=== PATIENT | female | born 1965 | race Two or more races ===

== ENCOUNTER 2016-12-12 15:29 | Emergency (ER) | payer OTHER ==
[2016-12-12 15:37] VITALS: RESP 18; O2SAT 96
[2016-12-12] MEDS ORDERED: PROPARACAINE 0.5% 15 ML OPHT DROP OP ONE (17:20)
--- NOTE | 2016-12-12 17:24 | EDPHY ---
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 Yesterday she was using Clorox wipes and got some fumes in her eyes. Ever since that episode she has had bilateral eye irritation. No photophobia. No discharge. No conjunctival injection. No vision changes. No headache. No difficulty breathing or coughing. REVIEW OF SYSTEMS: Constitutional: denies: chills, fever, recent illness, recent injury EENTM: See HPI denies: blurred vision, double vision, nose congestion Respiratory: denies: cough, shortness of breath Cardiac: denies: chest pain, irregular heart rate, lightheadedness, palpitations Gastrointestinal/Abdominal: denies: abdominal pain, diarrhea, nausea, vomiting, blood streaked stools Genitourinary: denies: dysuria, frequency, hematuria, pain Musculoskeletal: denies: joint pain, muscle pain Skin: denies: lesions, rash, jaundice, bruising Neurological: denies: headache, numbness, paresthesia, tingling, dizziness, weakness Hematologic/Lymphatic: denies: blood clots, easy bleeding, easy bruising Immunologic/allergic: denies: HIV/AIDS, transplant EXAM: GENERAL: Well-appearing, well-nourished and in no acute distress. HEAD: Atraumatic, normocephalic. EYES: Pupils equal round and reactive to light, extraocular movements intact, sclera anicteric, conjunctiva are normal. ENT: TMs normal, nares patent, oropharynx clear without exudates. Moist mucous membranes. NECK: Normal range of motion, supple without lymphadenopathy or JVD. LUNGS: Breath sounds clear to auscultation bilaterally and equal. No wheezes rales or rhonchi. HEART: Regular rate and rhythm without murmurs, rubs or gallops. ABDOMEN: Soft, nontender, normoactive bowel sounds. No guarding, no rebound. No masses appreciated. BACK: No CVA tenderness, no spinal tenderness, step-offs or deformities EXTREMITIES: Normal range of motion, no pitting or edema. No clubbing or cyanosis. NEUROLOGICAL: Cranial nerves II through XII grossly intact. Normal speech, normal gait. 5/5 strength, normal movement in all extremities, normal sensation PSYCH: Normal mood, normal affect. SKIN: Warm, dry, normal turgor, no visible rashes or lesions. Source: Patient Exam Limitations: No limitations - Personal History LMP (Females 10-55): Hysterectomy Current Tetanus Diphtheria and Acellular Pertussis (TDAP): Yes Tetanus Vaccine Date: w/in 10yrs - Medical/Surgical History Hx Asthma: No Hx Chronic Respiratory Disease: No Hx Diabetes: No Hx Cardiac Disease: No Hx Renal Disease: No Hx Cirrhosis: No Hx Alcoholism: No Hx HIV/AIDS: No Hx Splenectomy or Spleen Trauma: No Other PMH: Martine, tubal lig, shoulder surg, GERD, UTERINE PROBLEMS, hysterectomy , L OOPHARECTOMY. HTN - Family History Significant Family History: No pertinent family hx - Social History Smoking Status: Never smoked Alcohol Use: Sober Drug Use: None Constitutional: Initial Vital Signs Temperature (C) 36.6 C 12/12/16 15:35 Heart Rate 79 12/12/16 15:35 Respiratory Rate 18 12/12/16 15:35 Blood Pressure 101/64 12/12/16 15:35 O2 Sat (%) 96 12/12/16 15:35 O2 Delivery Mode Room Air Allergies/Adverse Reactions: morphine Allergy (Verified 12/12/16 15:32) Home Medications: Medication Instructions Recorded Omeprazole [Prilosec 20 mg] 20 mg PO BID 09/19/14 Atorvastatin Calcium [Lipitor 10 10 mg PO DAILY #30 tab 09/20/14 mg (*)] Lisinopril 10 mg PO DAILY10 12/15/15 Metoprolol Tartrate [Lopressor 25 100 mg PO DAILY10 12/15/15 mg (*)] Estradiol [Estrace Vaginal (*)] 1 gm VAG BID PRN #1 crtube 05/23/16 Medical Decision Making ED Course/Re-evaluation: Patient has normal vision and eye exam. We will irrigate her eyes. She likely has a slight irritation to her cornea that will heal after the next day or two. I will refer her to Ophthalmology as well. Differential Diagnosis: Partial list of the Differential diagnosis considered include but were not limited to; abrasion, foreign body, iritis, chemical irritation, burn and although unlikely based on the history and physical exam, I also considered glaucoma, retinal detachment, ischemia. I discussed these differential diagnoses and the plan with the patient as well as the usual and expected course. The patient understands that the diagnosis is provisional and that in medicine we are not always correct and that further workup is often warranted. Usual and customary warnings were given. All of the patient's questions were answered. The patient was instructed to return to the emergency department should the symptoms at all worsen or return, otherwise to followup with the physician as we discussed. - Data Points Medications Given: Discontinued Medications Proparacaine HCl (Alcaine 0.5%) 1 drops OP EDNOW ONE Stop: 12/12/16 17:21 Last Admin: 12/12/16 18:27 Dose: 2 drops Departure - Departure Disposition: Home, Routine, Self-Care Clinical Impression: Irritation of both eyes Condition: Fair Instructions: Keratitis (ED) Referrals: Joy Wise MD [Primary Care Provider] - As per Instructions Valdez Valentino MD [Medical Doctor] - As per Instructions Stand Alone Forms: Work Excuse
[2016-12-12 18:54] VITALS: BP 110/79; PULSE 62; TEMP 98.6
== END 2016-12-12 18:54 | disposition home or self-care (01) ==
DX: H57.8 Other specified disorders of eye and adnexa (principal); I10 Essential (primary) hypertension

== ENCOUNTER 2017-05-31 18:32 | Emergency (ER) | payer OTHER ==
--- NOTE | 2017-05-31 19:03 | CPEKG ---
Heart Rate: 88 RR Interval: 682 P-R Interval: 128 QRSD Interval: 80 QT Interval: 368 QTC Interval: 446 P Center: 14 QRS Center: 8 T Wave Center: -22 EKG Severity - BORDERLINE ECG - EKG Impression: SINUS RHYTHM EKG Impression: BORDERLINE T ABNORMALITIES, DIFFUSE LEADS Electronically Signed By: Yeyo Nieves 31-May-2017 19:32:43
--- NOTE | 2017-05-31 19:14 | EDPHY ---
H & P Time Seen by Provider: 05/31/17 19:13 HPI/ROS: Chief complaint. Chest pain HPI. 52-year-old female presents emergency department chest discomfort for 3 weeks. She describes as pressure. Recent diagnosis of bronchitis. Questionable abnormal EKG. Her pain is constant though somewhat worse at times. No radiation of her discomfort. It is not worse with deep breathing or exertion. Occasionally she feels a rapid heart rate and generalized weakness. Slight cough but no fever. No unusual leg pain or swelling. She has had similar symptoms previously ROS Constitutional. no fever/chills, no weakness Eyes. no problems with vision ENT. no sore throat, no nasal drainage Cardiovascular. Chest discomfort Respiratory. no shortness of breath, no cough Abdominal. no abdominal pain, no nausea/vomiting, no diarrhea . no problems urinating MS. no calf pain/swelling, no neck/back pain, no joint pain Skin. no rash Lymph. no swollen glands Neuro. no headache, no dizziness, no difficulty walking or with speech Past Medical/Surgical History: Past medical history significant for cholecystectomy GERD, hysterectomy, hypertension Family history of coronary artery disease Social History: , nonsmoker, no alcohol Smoking Status: Never smoked Physical Exam: General Appearance: Alert well-developed female mild distress vital signs are stable Eyes: Pupils equal and round no pallor or injection. ENT, Mouth: Mucous membranes are moist. Respiratory: There are no retractions, lungs are clear to auscultation. Cardiovascular: Regular rate and rhythm. Gastrointestinal: Abdomen is soft and nontender, no masses, bowel sounds normal. Neurological: Awake and alert, sensory and motor exams grossly normal. Skin: Warm and dry, no rashes. Musculoskeletal: Neck is supple nontender. Extremities symmetrical, full range of motion. Psychiatric: Patient is oriented X 3, there is no agitation. Constitutional: Initial Vital Signs Temperature (C) 36.9 C 05/31/17 18:42 Heart Rate 90 05/31/17 18:42 Respiratory Rate 16 05/31/17 18:42 Blood Pressure 111/82 H 05/31/17 18:42 O2 Sat (%) 95 05/31/17 18:42 O2 Delivery Mode Room Air Allergies/Adverse Reactions: amoxicillin Allergy (Verified 05/31/17 18:40) morphine Allergy (Verified 12/12/16 15:32) Home Medications: Medication Instructions Recorded Omeprazole [Prilosec 20 mg] 20 mg PO BID 09/19/14 Atorvastatin Calcium [Lipitor 10 10 mg PO DAILY #30 tab 09/20/14 mg (*)] Lisinopril 10 mg PO DAILY10 12/15/15 Metoprolol Tartrate [Lopressor 25 100 mg PO DAILY10 12/15/15 mg (*)] Estradiol [Estrace Vaginal (*)] 1 gm VAG BID PRN #1 crtube 05/23/16 Azithromycin 05/31/17 Medical Decision Making - Diagnostics EKG Interpretation: EKG interpreted by me shows normal sinus rhythm with normal interval. There is left axis deviation. QRS is normal there is no significant ST elevation or depression. There is diffuse T-wave flattening especially anterior leads No significant change from previous EKG September 2014 Imaging Results: Imaging Impressions Chest X-Ray 05/31/17 19:08 Impression: No acute thoracic abnormality. Chest/Thorax CTA 05/31/17 20:48 Impression: No pulmonary embolism to the segmental level. Dr. Vides discussed these findings by telephone with KENDRA PINON on 2016 at 22:11 hours. Chest x-ray interpreted by me as no pneumonia Procedures: IV normal saline, monitor. Aspirin in the emergency department ED Course/Re-evaluation: Re-evaluation at 8:45 p.m.. Patient is stable. Patient and I discussed imaging and lab results. We discussed elevated D-dimer and recommendation for chest CT. She expresses understanding and agreement upward bound director is Jayson Differential Diagnosis: I have considered acute coronary syndrome, pneumonia, pulmonary embolus. - Data Points Laboratory Results: Laboratory Results 05/31/17 18:52 05/31/17 18:52 05/31/17 05/31/17 05/31/17 18:52 18:52 18:52 WBC 8.61 10^3/uL 10^3/uL (3.80-9.50) RBC 4.78 10^6/uL 10^6/uL (4.18-5.33) Hgb 14.5 g/dL g/dL (12.6-16.3) Hct 41.0 % % (38.0-47.0) MCV 85.8 fL fL (81.5-99.8) MCH 30.3 pg pg (27.9-34.1) MCHC 35.4 g/dL g/dL (32.4-36.7) RDW 11.7 % % (11.5-15.2) Plt Count 255 10^3/uL 10^3/uL (150-400) MPV 10.0 fL fL (8.7-11.7) Neut % (Auto) 50.2 % % (39.3-74.2) Lymph % (Auto) 40.4 % % (15.0-45.0) [place] % (Auto) 7.0 % % (4.5-13.0) Eos % (Auto) 1.7 % % (0.6-7.6) Baso % (Auto) 0.5 % % (0.3-1.7) Nucleat RBC Rel Count 0.0 % % (0.0-0.2) Absolute Neuts (auto) 4.32 10^3/uL 10^3/uL (1.70-6.50) Absolute Lymphs (auto) 3.48 10^3/uL H 10^3/uL (1.00-3.00) Absolute Monos (auto) 0.60 10^3/uL 10^3/uL (0.30-0.80) Absolute Eos (auto) 0.15 10^3/uL 10^3/uL (0.03-0.40) Absolute Basos (auto) 0.04 10^3/uL 10^3/uL (0.02-0.10) Absolute Nucleated RBC 0.00 10^3/uL 10^3/uL (0-0.01) Immature Gran % 0.2 % % (0.0-1.1) Immature Gran # 0.02 10^3/uL 10^3/uL (0.00-0.10) D-Dimer 1.07 ug/mLFEU H ug/mLFEU (0.00-0.50) Sodium 139 mEq/L mEq/L (134-144) Potassium 3.5 mEq/L mEq/L (3.5-5.2) Chloride 101 mEq/L mEq/L (97-110) Carbon Dioxide 25 mEq/l mEq/l (22-31) Anion Gap 13 mEq/L mEq/L (8-16) BUN 16 mg/dL mg/dL (7-23) Creatinine 0.9 mg/dL mg/dL (0.6-1.0) Estimated GFR > 60 Glucose 109 mg/dL H mg/dL (70-100) Calcium 9.4 mg/dL mg/dL (8.5-10.4) Troponin I < 0.012 ng/mL ng/mL (0.000-0.034) Medications Given: Discontinued Medications Aspirin (Aspirin) 324 mg PO EDNOW ONE Stop: 05/31/17 19:32 Last Admin: 05/31/17 19:47 Dose: 324 mg Sodium Chloride (Ns) 1,000 mls @ 0 mls/hr IV ONCE ONE; Wide Open PRN Reason: Protocol Stop: 05/31/17 20:48 Last Admin: 05/31/17 20:57 Dose: 1,000 mls Departure - Departure Disposition: Home, Routine, Self-Care Clinical Impression: Chest pain Qualifiers: Chest pain type: unspecified Qualified Code(s): R07.9 - Chest pain, unspecified Condition: Good Instructions: Chest Pain (ED) Additional Instructions: Return for worsening symptoms. Call Cardiology tomorrow to make follow-up of appointment. Referrals: Joy Wise MD [Primary Care Provider] - As per Instructions Pradeep Paz MD [Medical Doctor] - 2-3 days without fail
[2017-05-31 19:19] LABS: PLATELET COUNT 255 10^3/uL (150-400)
[2017-05-31] MEDS ORDERED: ASPIRIN 81 MG CHEWABLE TAB PO ONE (19:31)
[2017-05-31] MEDS ORDERED: NS 1,000 ML IV ONE (20:47)
[2017-05-31 22:12] VITALS: BP 103/64; PULSE 66; RESP 14; O2SAT 96
[2017-05-31 22:45] VITALS: TEMP 98.6
== END 2017-05-31 22:44 | disposition home or self-care (01) ==
DX: R07.9 Chest pain, unspecified (principal); I10 Essential (primary) hypertension; E86.9 Volume depletion, unspecified

== ENCOUNTER → 2018-02-07 | Outpatient (CLI) | payer OTHER | LOC: CIMAGING 10:52 | PROVIDERS: ATTEND Physical Medicine & Rehabilitation | DX: M25.561 Pain in right knee (principal); M25.562 Pain in left knee | CPT/HCPCS: 73564-PO ==

== ENCOUNTER → 2018-03-14 | Outpatient (CLI) | payer OTHER | LOC: CIMAGING 15:03 | PROVIDERS: ATTEND Physical Medicine & Rehabilitation | DX: M53.3 Sacrococcygeal disorders, not elsewhere classified (principal) | CPT/HCPCS: 72190-PO ==

== ENCOUNTER → 2018-04-09 | Outpatient (CLI) | payer OTHER | LOC: FIMAGING 09:10 | PROVIDERS: ATTEND Nurse Practitioner Family | DX: K21.9 Gastro-esophageal reflux disease without esophagitis (principal); K29.70 Gastritis, unspecified, without bleeding; K44.9 Diaphragmatic hernia without obstruction or gangrene ==

== ENCOUNTER 2018-08-23 10:23 | Emergency (ER) | payer OTHER ==
[2018-08-23] MEDS ORDERED: ONDANSETRON DISINTEGRATING 4 MG TAB PO ONE (11:03)
--- NOTE | 2018-08-23 11:59 | EDPHY ---
H & P Stated Complaint: mild vertigo started 1.5 weeks ago, increased severity, + nausea Time Seen by Provider: 08/23/18 10:29 HPI/ROS: CHIEF COMPLAINT: Vertigo History by patient HISTORY OF PRESENT ILLNESS: 53-year-old woman with history of hypertension presents complaining of 2 days of severe vertigo but 2 weeks of symptoms of feeling slightly dizzy. Patient feels that the room is spinning around and associated with some severe nausea but no vomiting, patient says she is holding it back. Symptoms are worse when she moves around her turns her head. She feels a slight somewhat worse when she looks to the left. She has had a mild frontal headache, which she describes as feeling cold and slightly numb, however she also had a biopsy of a mole and her left christian area yesterday at the computer systems engineer, and she feels this is related.. For the last 2 days she has had some URI symptoms however the dizziness began before this. She denies any recent head trauma. She denies any focal weakness and complains of some mild numbness all over her head but otherwise nothing focal. Symptoms seem to get markedly worse yesterday and today when she got out of bed. She has a remote history of migraines but they were not associated with vertigo. Patient also notes that her blood pressure has been running low on her blood pressure medicines and she has an appointment pending primary care physician to have this evaluated. She says it has been as low as a systolic of 100/70. She denies feeling like she is going to faint, fall or near syncopal. She has had no recent change in her medications and no new medications. Patient has a history of head trauma 6 years ago and at that time had associated similar vertigo and was given the Anjali maneuver, which improved her symptoms. REVIEW OF SYSTEMS: As in HPI, and all other systems reviewed and are negative Source: Patient - Personal History LMP (Females 10-55): Hysterectomy Tetanus Vaccine Date: w/in 10yrs - Medical/Surgical History Hx Asthma: No Hx Chronic Respiratory Disease: No Hx Diabetes: No Hx Cardiac Disease: Yes Hx Renal Disease: No Hx Cirrhosis: No Hx Alcoholism: No Hx HIV/AIDS: No Hx Splenectomy or Spleen Trauma: No Other PMH: Martine, tubal lig, shoulder surg, GERD, UTERINE PROBLEMS, hysterectomy , L OOPHARECTOMY. HTN, - Social History Smoking Status: Never smoked - Physical Exam Exam: General Appearance: Alert, eyes closed, comfortable appearing. Head: normocephalic, atraumatic Eyes: Pupils equal and round, reactive to light, no pallor or injection. Extraocular movements intact, positive left gives nystagmus TMs: Clear bilaterally Mouth: Mucous membranes moist. Oropharynx clear. Respiratory: Normal, effort, lungs are clear to auscultation. No wheezes, rales or rhonchi. Cardiovascular: Regular rate and rhythm. S1, S2, no murmurs, gallops or rubs appreciated Gastrointestinal: Abdomen is soft and nontender, no masses, bowel sounds normal. Back: No CVA tenderness, no bony tenderness Neurological: Awake, alert and oriented x 3, cranial nerves 2 through 12 intact , no pronator drift, cautious but intact gait, heel to lazo intact, finger-to- nose intact, DTRs 2+ and equal bilaterally, sensation equal bilaterally Skin: Warm and dry, no rashes. Musculoskeletal: No deformities or tenderness. Extremities: full range of motion, no edema, DP2+ bilat Psychiatric: Patient has normal affect, there is no agitation. Constitutional: Initial Vital Signs Temperature (C) 36.5 C 08/23/18 10:35 Heart Rate 78 08/23/18 10:35 Respiratory Rate 18 08/23/18 10:35 Blood Pressure 117/75 08/23/18 10:35 O2 Sat (%) 95 08/23/18 10:35 O2 Delivery Mode Room Air Allergies/Adverse Reactions: amoxicillin Allergy (Verified 08/23/18 10:32) morphine Allergy (Verified 08/23/18 10:32) Home Medications: Medication Instructions Recorded Atorvastatin Calcium [Lipitor 10 10 mg PO DAILY #30 tab 09/20/15 mg (*)] Lisinopril 10 mg PO DAILY10 12/15/15 Carafate 1 GM (*) 08/23/18 Chlorthalidone 08/23/18 Dexilant 08/23/18 Meclizine HCl [Meclizine HCl 25 mg 25 mg PO BID #10 tab 08/23/18 (RX,OTC)] Premarin 08/23/18 Medical Decision Making ED Course/Re-evaluation: 53-year-old woman presents with vertigo and nausea. While getting evaluated emerged department patient did have an episode of vomiting. She was given a dose of Zofran ODT. I performed an Anjali maneuver on her after which her symptoms were markedly improved. We discussed follow-up with Ear Nose Throat specialist and/or her primary care physician for persistent or recurrent symptoms of vertigo. Although the patient has been having issues with low blood pressure at home her blood pressure was within normal limits here. I recommended she discuss this further with her primary care physician who she has an appointment with later this afternoon. - Data Points Medications Given: Discontinued Medications Ondansetron HCl (Zofran Odt) 4 mg PO EDNOW ONE Stop: 08/23/18 11:04 Last Admin: 08/23/18 11:05 Dose: 4 mg Departure - Departure Disposition: Home, Routine, Self-Care Clinical Impression: Vertigo Condition: Good Instructions: Benign Paroxysmal Positional Vertigo (ED) Additional Instructions: You were seen by Dr. Melinda Deleon today. You have vertigo. If her symptoms come back or worsen you may try the meclizine and follow up with Ear Nose Throat specialist, Dr. Ramon. Return for any worsening or new concerns. Referrals: Joy Wise MD [Primary Care Provider] - As per Instructions Suzi Ramon MD [Medical Doctor] - As per Instructions Prescriptions: Meclizine HCl [Meclizine HCl 25 mg (RX,OTC)] 25 mg PO BID #10 tab Print Language: Mongolian
[2018-08-23 12:29] VITALS: BP 108/63
== END 2018-08-23 12:27 | disposition home or self-care (01) ==
LOC: CED 10:23
DX: R42 Dizziness and giddiness (principal); R11.0 Nausea; I10 Essential (primary) hypertension; K21.9 Gastro-esophageal reflux disease without esophagitis; Z88.0 Allergy status to penicillin
CPT/HCPCS: 99283-ER

== ENCOUNTER → 2018-11-16 | Outpatient (CLI) | payer OTHER | LOC: FIMAGING 12:00 ==